=== PATIENT | male | born 1955 | race Caucasian/White ===

== ENCOUNTER 2022-03-30 06:00 | Observation (INO) ==
[2022-03-30] MEDS ORDERED: CeFAZolin Syr 3,000MG/30 ML 3,000 MG/30 ML SYRINGE IVPB ONE (06:19)
[2022-03-30] MEDS ORDERED: Ringers Solution, Lactated 1,000 ML IVC SCH ×2 (06:30→22:03)
[2022-03-30] MEDS ORDERED: Ondansetron 4 MG/2 ML VIAL IVP PRN ×3 (06:57→22:03)
[2022-03-30] MEDS ORDERED: *HR* FentaNYL (PF) 100 MCG/2 ML VIAL IVP PRN (06:57)
[2022-03-30] MEDS ORDERED: *HR* HYDROmorphone PF 0.5 MG/0.5 ML SYRINGE IVP PRN (06:57)
[2022-03-30] MEDS ORDERED: *HR* OxyCODONE Immed Rel 5 MG TABLET PO ONE (07:00)
[2022-03-30] MEDS ORDERED: Famotidine 20 MG TABLET PO ONE (07:00)
[2022-03-30] MEDS ORDERED: Vancomycin 1,000 MG VIAL ONE (07:08)
[2022-03-30] MEDS: tiZANidine 4 MG TABLET PO SCH ×3 (07:16→21:00)
[2022-03-30] MEDS ORDERED: *HR* Propofol 200 MG/20 ML VIAL IVP ONE (07:17)
[2022-03-30] MEDS ORDERED: *HR* Midazolam HCl 5 MG/5 ML VIAL IVP ONE (07:17)
[2022-03-30] MEDS ORDERED: *HR* FentaNYL (PF) 100 MCG/2 ML VIAL ONE (07:17)
[2022-03-30] MEDS ORDERED: Lidocaine -MPF 2% 2 ML VIAL ONE (07:18)
[2022-03-30] MEDS ORDERED: *HR* Remifentanil 2 MG VIAL IVP ONE ×2 (07:19→10:02)
[2022-03-30] MEDS ORDERED: Heparin 1,000 UNITS/500 mL 500 ML ONE (07:19)
[2022-03-30] MEDS ORDERED: *HR* Phenylephrine 10 MG/ML VIAL ONE (07:22)
[2022-03-30] MEDS ORDERED: *HR* OxyCODONE Immed Rel 5 MG TABLET PO PRN ×3 (07:26→22:03)
[2022-03-30] MEDS ORDERED: Ketorolac 30 MG/ML VIAL IVP PRN (07:26)
[2022-03-30] MEDS ORDERED: *HR* HYDROmorphone (PF) 1 MG/ML SYRINGE IVP PRN (07:26)
[2022-03-30] MEDS ORDERED: Pregabalin 75 MG CAPSULE PO ONE (07:26)
[2022-03-30] MEDS ORDERED: *HR* Succinylcholine 200 MG/10 ML VIAL IVP ONE (07:26)
[2022-03-30] MEDS ORDERED: Famotidine 20 MG/2 ML VIAL IVP ONE ×2 (07:26→22:03)
[2022-03-30] MEDS ORDERED: Acetaminophen IV 1,000 MG/100 ML BAG IVPB ONE ×2 (07:26→12:42)
[2022-03-30] MEDS ORDERED: Dexmedetomidine HCl 400 MCG/100 ML MLS IVC ONE (07:31)
[2022-03-30] MEDS ORDERED: *HR* Magnesium Sulfate 1 GM/2 ML VIAL ONE (08:10)
[2022-03-30] MEDS ORDERED: Ondansetron 4 MG/2 ML VIAL ONE ×2 (08:40→12:41)
[2022-03-30] MEDS ORDERED: Metoprolol XL (24 HR) Succ 25 MG TAB.ER.24H PO SCH (09:00)
[2022-03-30] MEDS ORDERED: *HR* Remifentanil 1 MG VIAL IVP ONE (12:01)
[2022-03-30] MEDS ORDERED: *HR* HYDROMORPHONE 2 MG/ML VIAL ONE (12:55)
[2022-03-30] MEDS ORDERED: Insulin Human Regular 10 UNIT in 0.9 % Sodium Chloride 10 ML IV ONE (13:39)
[2022-03-30] MEDS ORDERED: Insulin Regular, Human 100 UNIT/ML ONE (13:47)
[2022-03-30] MEDS ORDERED: Insulin Human Regular 7 UNIT in 0.9 % Sodium Chloride 10 ML IV ONE (14:32)
[2022-03-30] MEDS ORDERED: *HR* Dextrose 50 % in Water (Syg) 50 ML SYRINGE IVP PRN (19:01)
[2022-03-30] MEDS ORDERED: D5% in Water 1,000 ML IVC PRN (19:01)
[2022-03-30] MEDS ORDERED: Dextrose Gel 15 GM/37.5 ML TUBE PO PRN ×2 (19:01)
[2022-03-30] MEDS ORDERED: Insulin LISPRO 300 UNITS/3 ML VIAL SUBQ SCH (21:00)
[2022-03-30] MEDS ORDERED: Ibuprofen 800 MG TABLET PO PRN (22:03)
[2022-03-30] MEDS ORDERED: Naloxone 0.4 MG/ML INJ IVP PRN (22:03)
[2022-03-30] MEDS ORDERED: Acetaminophen 325 MG TABLET PO PRN (22:03)
[2022-03-31] MEDS ORDERED: CeFAZolin 2 GM/120 ML BAG IVPB SCH
[2022-03-31] MEDS ORDERED: CeFAZolin 2,000 MG/120 ML BAG IVPB SCH
[2022-03-31] MEDS: *HR* HYDROcodone/Acet 5/325 mg TABLET PO PRN ×2 (00:12→15:04)
[2022-03-31] MEDS: *HR* OxyCODONE Immed Rel 5 MG TABLET PO PRN ×3 (03:12→23:57)
[2022-03-31] MEDS ORDERED: Insulin LISPRO 300 UNITS/3 ML VIAL SUBQ SCH ×2 (07:30→21:00)
[2022-03-31] MEDS ORDERED: Simethicone 80 MG TAB.CHEW PO PRN (08:59)
[2022-03-31] MEDS: *HR* Metformin 500 MG TABLET PO SCH ×2 (09:48→19:48)
[2022-03-31] MEDS: Finasteride 5 MG TABLET PO SCH (09:48)
[2022-03-31] MEDS: amLODIPine 5 MG TABLET PO SCH (09:48)
[2022-03-31] MEDS: lisinopriL 20 MG TABLET PO SCH (09:49)
[2022-03-31] MEDS: tiZANidine 4 MG TABLET PO SCH ×3 (09:49→19:48)
[2022-03-31] MEDS: hydroCHLOROthiazide 25 MG TABLET PO SCH (09:49)
[2022-04-01] MEDS: *HR* OxyCODONE Immed Rel 5 MG TABLET PO PRN ×2 (04:16→09:40)
[2022-04-01 07:23] VITALS: BP 120/72; PULSE 89; TEMP 98.8; O2SAT 95
[2022-04-01] MEDS: *HR* Metformin 500 MG TABLET PO SCH (09:40)
[2022-04-01] MEDS: lisinopriL 20 MG TABLET PO SCH (09:40)
[2022-04-01] MEDS: amLODIPine 5 MG TABLET PO SCH (09:40)
[2022-04-01] MEDS: hydroCHLOROthiazide 25 MG TABLET PO SCH (09:40)
[2022-04-01] MEDS: Finasteride 5 MG TABLET PO SCH (09:41)
[2022-04-01] MEDS: tiZANidine 4 MG TABLET PO SCH (09:41)
[2022-04-03] MEDS ORDERED: (Semaglutide [Ozempic] 1 MG/0.75 ML Pen.Injctr) SUBQ SCH (12:00)
== END 2022-04-01 11:38 | disposition home health service (06) ==
LOC: SDCAOSI 06:00 → 4WAOSI 06:00
PROVIDERS: ADMIT Orthopaedic Surgery Orthopaedic Surgery of the Spine; ATTEND Orthopaedic Surgery Orthopaedic Surgery of the Spine